=== PATIENT | female | born 1955 | race Caucasian/White ===

== ENCOUNTER 2024-07-22 21:05 | Inpatient (IN) | payer OTHER, SELFPAY ==
[~2024-07-22 21:05] MED LIST: Iopamidol-370 76% 500 ML MDV (1 ML CHARGE) ONE
[2024-07-22] MEDS ORDERED: HYDROmorphone 0.5 MG/0.5 ML SYRINGE ONE ×2 (21:14→22:22)
[2024-07-22] MEDS ORDERED: Aspirin Chewable 81 MG TAB ONE (21:14)
[2024-07-22] MEDS ORDERED: Nitroglycerin 50 MG/250 ML BOT 250 ML ONE (21:14)
[2024-07-22] MEDS ORDERED: EPINEPHrine 1 MG/ML VIAL ONE (21:15)
[2024-07-22] MEDS ORDERED: Ipratropium/Albuterol 3 ML NEB ONE (21:24)
[2024-07-22] MEDS ORDERED: Ondansetron PF 4 MG/2 ML Vial ONE ×2 (21:25→23:02)
[2024-07-22 21:35] LABS: Analyzer IN Cardio ER; Base Excess (BEa) -6.7 mEq/L (-2.0 to +3.0); CO2 Tension 50.2 mmHg (35.0-45.0); Calcium, Ionized (arterial) 1.16 mmol/L (1.12-1.30); Hematocrit-ABG 45 % (36.0-47.0); Hemoglobin (Hb) 15.3 g/dL (12.0-16.0); O2 Tension (PaO2), arterial 136.2 mmHg (> 70.0); Potassium - ABG Lab 3.69 mmol/L (3.70-5.30); pH, Arterial 7.239 (7.35-7.45)
[2024-07-22 21:38] LABS: Puncture Site Right Radial artery
[2024-07-22] MEDS ORDERED: methylPREDNISolone Sod Succ/PF 125 MG/2 ML VIAL ONE (21:44)
[2024-07-22 21:54] LABS: #Basophils 0.15 10x3/uL (0.0-0.2); %Basophils 0.7 % (0.0-1.0); %Eosinophils 0.3 % (0.0-10.0); %Lymphocytes 16.9 % (21.0-51.0); %Monocytes 3.9 % (0.0-10.0); %Neutrophils 76.7 % (42.0-75.0); Hematocrit 43.6 % (36.0-47.0); Hemoglobin 14.4 g/dL (12.0-16.0); Mean Corpuscular Hemoglobin 31.6 pg (27.0-31.0); Mean Corpuscular Volume 95.6 fL (78.0-98.0); Mean Platelet Volume 10.4 fL (7.4-10.4); Platelet Count 274 10x3/uL (130-400); RBC Distribution Width 13.4 % (11.5-14.5); Red Blood Cell (RBC) Count 4.56 mill/uL (4.20-5.40)
[2024-07-22 22:25] LABS: ALT (SGPT) 71 U/L (Less than 34); AST (SGOT) 157 U/L (11-34); Albumin 3.2 g/dL (3.1-4.5); Alkaline Phosphatase 75 U/L (40-110); Anion Gap 20 mmol/L (10-20); BUN (Urea Nitrogen) 12 mg/dL (9.8-20.1); Bilirubin, Total 0.3 mg/dL (0.3-1.2); Calc. Creatinine Clearance 0 mL/min (70-130); Calcium 8.8 mg/dL (7.8-10.44); Carbon Dioxide 19 mmol/L (23-31); Chloride 102 mmol/L (98-107); Estimated GFR 52; Globulin 4.6 g/dL (2.4-3.5); Glucose 255 mg/dL (80-115); Potassium 3.7 mmol/L (3.5-5.1); Protein, Total 7.8 g/dL (5.8-8.1); Sodium 137 mmol/L (136-145)
[2024-07-22 22:27] LABS: Troponin I 0.046 ng/mL (< 0.028)
[2024-07-22] MEDS ORDERED: cefTRIAXone (ROCEPHIN) 2 GM VIAL ONE (23:48)
[2024-07-22] MEDS ORDERED: Enoxaparin 80 MG (0.8 mL) SYRINGE ONE (23:49)
[2024-07-22] MEDS ORDERED: Azithromycin 500 MG VIAL ONE (23:49)
[2024-07-23] MEDS ORDERED: Ipratropium/Albuterol 3 ML NEB NEB PRN (00:17)
[2024-07-23] MEDS ORDERED: Nicotine 14 MG PATCH TD PRN (00:18)
[2024-07-23] MEDS ORDERED: Acetaminophen 325 MG TAB PO PRN (00:20)
[2024-07-23] MEDS ORDERED: Acetaminophen 650 MG Suppository PR PRN (00:20)
[2024-07-23 00:49] LABS: Hemoglobin A1c 6.3 % (4.0-6.0)
[2024-07-23] MEDS: Ketorolac Tromethamine 30 MG (1 mL) VIAL IVP PRN (01:32)
[2024-07-23] MEDS: Doxycycline 100 MG CAP PO SCH (01:34)
[2024-07-23] MEDS: Gabapentin 100 MG CAP PO SCH (01:35)
[2024-07-23 02:14] VITALS: BMI 29.7
[2024-07-23] MEDS: Ipratropium/Albuterol 3 ML NEB NEB SCH (02:45)
[2024-07-23 03:55] LABS: #Basophils 0.05 10x3/uL (0.0-0.2); %Basophils 0.3 % (0.0-1.0); %Eosinophils 0.4 % (0.0-10.0); %Lymphocytes 5.2 % (21.0-51.0); %Neutrophils 91.5 % (42.0-75.0); Mean Corpuscular HGB CONC 33.3 g/dL (32.0-36.0); Mean Corpuscular Hemoglobin 31.7 pg (27.0-31.0); Mean Corpuscular Volume 95.1 fL (78.0-98.0); Mean Platelet Volume 11.6 fL (7.4-10.4); Platelet Count 208 10x3/uL (130-400); RBC Distribution Width 13.7 % (11.5-14.5)
[2024-07-23 04:10] LABS: Magnesium 2.2 mg/dL (1.6-2.6)
[2024-07-23 04:14] LABS: Troponin I 0.182 ng/mL (< 0.028)
[2024-07-23 05:45] LABS: Troponin I 0.185 ng/mL (< 0.028)
[2024-07-23 06:35] LABS: Calcium 8.5 mg/dL (7.8-10.44); Chloride 103 mmol/L (98-107); Potassium 4.2 mmol/L (3.5-5.1); Sodium 135 mmol/L (136-145)
[2024-07-23 06:36] LABS: Globulin 4.3 g/dL (2.4-3.5); Glucose 287 mg/dL (80-115); Protein, Total 7.3 g/dL (5.8-8.1)
[2024-07-23 06:37] LABS: Anion Gap 18 mmol/L (10-20); Carbon Dioxide 18 mmol/L (23-31)
[2024-07-23 06:39] LABS: Alkaline Phosphatase 63 U/L (40-110); Bilirubin, Total 0.5 mg/dL (0.3-1.2)
[2024-07-23 06:40] LABS: BUN (Urea Nitrogen) 15 mg/dL (9.8-20.1); Calc. Creatinine Clearance 62 mL/min (70-130); Estimated GFR 57
[2024-07-23 06:42] LABS: ALT (SGPT) 83 U/L (Less than 34); AST (SGOT) 128 U/L (11-34)
[2024-07-23] MEDS: Morphine 2 MG/ML VIAL SLOW IVP PRN (08:15)
[2024-07-23] MEDS ORDERED: HumaLOG 300 UNITS/3 ML VIAL SC PRN ×2 (09:16)
[2024-07-23] MEDS ORDERED: Albuterol 200 PUFF INH INH PRN (10:03)
[2024-07-23] MEDS: Famotidine 20 MG TAB PO SCH (10:58)
[2024-07-23] MEDS: Enoxaparin 40 MG (0.4 mL) SYRINGE SC SCH (10:58)
[2024-07-23] MEDS: methylPREDNISolone Sod Succ 40 MG VIAL IVP SCH ×2 (10:58→11:42)
[2024-07-23] MEDS: HYDROcodone/Acetaminophen 7.5/325 mg Tablet PO PRN (11:07)
[2024-07-23] MEDS: Insulin Lispro 100 UNIT/ML 10 ML VIAL SC PRN (11:08)
[2024-07-23] MEDS: Famotidine/PF 20 mg/2ml Vial SLOW IVP SCH (11:10)
[2024-07-23] MEDS: Ondansetron PF 4 MG/2 ML Vial IVP PRN (11:16)
[2024-07-23] MEDS: Aspirin 81 mg Enteric Coated Tablet PO SCH (18:53)
[2024-07-23] MEDS: Mometasone 200 MCG/Formoterol 5 MCG 120 PUFF INHALER INH SCH (19:22)
[2024-07-23] MEDS: rOPINIRole HCl 0.25 MG TAB PO SCH (21:24)
[2024-07-23] MEDS: cefTRIAXone\\ROCEPHIN 1 GM in Sodium Chloride 0.9% 100 ML IVPB SCH (23:47)
[2024-07-23] MEDS: Ondansetron ODT 4 MG TAB PO PRN (23:48)
[2024-07-24 04:32] LABS: Hematocrit 37.4 % (36.0-47.0); Hemoglobin 12.4 g/dL (12.0-16.0); Mean Corpuscular HGB CONC 33.2 g/dL (32.0-36.0); Mean Corpuscular Hemoglobin 31.8 pg (27.0-31.0); Mean Corpuscular Volume 95.9 fL (78.0-98.0); Mean Platelet Volume 10.8 fL (7.4-10.4); Platelet Count 187 10x3/uL (130-400); RBC Distribution Width 13.6 % (11.5-14.5)
[2024-07-24 04:47] LABS: ALT (SGPT) 67 U/L (Less than 34); AST (SGOT) 47 U/L (11-34); Alkaline Phosphatase 55 U/L (40-110); Anion Gap 14 mmol/L (10-20); BUN (Urea Nitrogen) 14 mg/dL (9.8-20.1); Bilirubin, Direct 0.2 mg/dL (0.1-0.3); Bilirubin, Total 0.5 mg/dL (0.3-1.2); Calc. Creatinine Clearance 78 mL/min (70-130); Carbon Dioxide 22 mmol/L (23-31); Chloride 99 mmol/L (98-107); Estimated GFR 76; Glucose 229 mg/dL (80-115); Potassium 4.2 mmol/L (3.5-5.1); Protein, Total 7.2 g/dL (5.8-8.1); Sodium 131 mmol/L (136-145)
[2024-07-24 05:08] LABS: Band 3 % (5-11); Lymphocytes 5 % (21-51); Monocytes 3 % (0-10); Neutrophil 89 % (42-75); Nucleated RBC (Manual Ct) 1 % (0); Platelet Adequacy Comment Platelets Normal; Polychromasia SLIGHT = 2-3 cells HPF (0-2)
[2024-07-24] MEDS: Enoxaparin 40 MG (0.4 mL) SYRINGE SC SCH (08:34)
[2024-07-24] MEDS: Aspirin 81 mg Enteric Coated Tablet PO SCH (08:34)
[2024-07-24] MEDS ORDERED: Non-Formulary Item 1 EACH (Fluticasone/Umeclidin/Vilanter [Trelegy Ellipta 200-62.5-25] 1 INH SCH (09:00)
[2024-07-24] MEDS ORDERED: Dextrose 5% in Water 1,000 ML IV PRN (09:07)
[2024-07-24] MEDS ORDERED: Glucagon 1 MG/ML KIT IM PRN (09:07)
[2024-07-24] MEDS ORDERED: Dextrose 50% Abboject 50 ML SYRINGE SLOW IVP PRN (09:07)
[2024-07-24] MEDS ORDERED: Ketorolac Tromethamine 30 MG (1 mL) VIAL IVP SCH (14:30)
[2024-07-24] MEDS ORDERED: Morphine 4 MG/ML VIAL SLOW IVP SCH (14:30)
[2024-07-24] MEDS ORDERED: tiZANidine HCl 4 MG TAB PO SCH (15:00)
[2024-07-24] MEDS: Ketorolac Tromethamine 30 MG (1 mL) VIAL IVP SCH (16:03)
[2024-07-24] MEDS: Morphine 4 MG/ML VIAL SLOW IVP SCH (16:03)
[2024-07-24] MEDS: tiZANidine HCl 4 MG TAB PO SCH ×2 (16:03→20:49)
[2024-07-24] MEDS: Morphine 4 MG/ML VIAL ONE (16:04)
[2024-07-24] MEDS: Ketorolac Tromethamine 30 MG (1 mL) VIAL ONE (16:04)
[2024-07-24] MEDS: traZODone HCl 50 MG TAB PO SCH (20:49)
[2024-07-24] MEDS: Morphine 2 MG/ML VIAL SLOW IVP PRN (20:50)
[2024-07-24] MEDS: Insulin Lispro 100 UNIT/ML 10 ML VIAL SC PRN (21:32)
[2024-07-25] MEDS: traMADol HCl 50 MG TAB PO PRN (02:46)
[2024-07-25] MEDS ORDERED: Nitroglycerin 50 MG/250 ML BOT 0 ML ONE (06:31)
[2024-07-25 06:47] LABS: #Basophils Less than 0.03 10x3/uL (0.0-0.2); #Eosinophils Less than 0.03 10x3/uL (0.0-0.7); %Basophils 0.1 % (0.0-1.0); %Lymphocytes 9.1 % (21.0-51.0); %Neutrophils 85.1 % (42.0-75.0); Hematocrit 34.9 % (36.0-47.0); Hemoglobin 11.5 g/dL (12.0-16.0); Mean Corpuscular Hemoglobin 31.4 pg (27.0-31.0); Mean Corpuscular Volume 95.4 fL (78.0-98.0); Mean Platelet Volume 10.7 fL (7.4-10.4); Platelet Count 184 10x3/uL (130-400); RBC Distribution Width 13.5 % (11.5-14.5); Red Blood Cell (RBC) Count 3.66 mill/uL (4.20-5.40)
[2024-07-25 07:15] LABS: ALT (SGPT) 47 U/L (Less than 34); AST (SGOT) 25 U/L (11-34); Albumin 2.9 g/dL (3.1-4.5); Alkaline Phosphatase 55 U/L (40-110); Anion Gap 14 mmol/L (10-20); BUN (Urea Nitrogen) 19 mg/dL (9.8-20.1); Bilirubin, Direct 0.2 mg/dL (0.1-0.3); Bilirubin, Total 0.5 mg/dL (0.3-1.2); Calc. Creatinine Clearance 80 mL/min (70-130); Carbon Dioxide 24 mmol/L (23-31); Chloride 97 mmol/L (98-107); Estimated GFR 78; Glucose 206 mg/dL (80-115); Sodium 131 mmol/L (136-145)
[2024-07-25] MEDS: Potassium Chloride 20 MEQ TAB PO SCH (09:02)
[2024-07-25] MEDS: Furosemide 40 MG (4 mL) VIAL SLOW IVP SCH (09:03)
[2024-07-25] MEDS: guaiFENesin ER 600 MG TAB PO SCH ×2 (17:49→21:09)
[2024-07-26] MEDS ORDERED: Ketorolac Tromethamine 30 MG (1 mL) VIAL IVP PRN (00:35)
[2024-07-26 00:53] LABS: Actual Bicarbonate (HCO3a) 27.7 mEq/L (22-28); Base Excess (BEa) 3.4 mEq/L (-2.0 to +3.0); CO2 Tension 40.8 mmHg (35.0-45.0); Calcium, Ionized (arterial) 1.23 mmol/L (1.12-1.30); Carboxyhemoglobin (COHb) 1.5 gm% (0.0-3.0); Hematocrit-ABG 38 % (36.0-47.0); Hemoglobin (Hb) 12.8 g/dL (12.0-16.0); Potassium - ABG Lab 4.73 mmol/L (3.70-5.30); pH, Arterial 7.449 (7.35-7.45)
[2024-07-26 00:56] LABS: O2 Tension (PaO2), arterial 57.5 mmHg (> 70.0); Puncture Site Right Radial artery
[2024-07-26] MEDS: Ketorolac Tromethamine 30 MG (1 mL) VIAL IVP SCH (01:15)
[2024-07-26] MEDS: Guaifenesin DM 100-10/5 ML UDCUP PO PRN (01:15)
[2024-07-26 01:46] LABS: #Basophils Less than 0.03 10x3/uL (0.0-0.2); #Eosinophils Less than 0.03 10x3/uL (0.0-0.7); %Basophils 0.1 % (0.0-1.0); %Lymphocytes 9.9 % (21.0-51.0); %Monocytes 4.5 % (0.0-10.0); %Neutrophils 85.1 % (42.0-75.0); Hematocrit 35.5 % (36.0-47.0); Hemoglobin 11.7 g/dL (12.0-16.0); Mean Platelet Volume 10.4 fL (7.4-10.4); Platelet Count 184 10x3/uL (130-400); RBC Distribution Width 13.2 % (11.5-14.5); Red Blood Cell (RBC) Count 3.66 mill/uL (4.20-5.40)
[2024-07-26 02:03] LABS: Lactic Acid 1.89 mmol/L (0.50-2.20)
[2024-07-26 02:04] LABS: ALT (SGPT) 37 U/L (Less than 34); AST (SGOT) 17 U/L (11-34); Albumin 2.9 g/dL (3.1-4.5); Alkaline Phosphatase 51 U/L (40-110); Anion Gap 15 mmol/L (10-20); BUN (Urea Nitrogen) 21 mg/dL (9.8-20.1); Bilirubin, Direct 0.2 mg/dL (0.1-0.3); Bilirubin, Total 0.5 mg/dL (0.3-1.2); Calc. Creatinine Clearance 75 mL/min (70-130); Calcium 8.9 mg/dL (7.8-10.44); Carbon Dioxide 24 mmol/L (23-31); Chloride 97 mmol/L (98-107); Estimated GFR 73; Glucose 226 mg/dL (80-115); Potassium 4.9 mmol/L (3.5-5.1); Protein, Total 6.8 g/dL (5.8-8.1); Sodium 131 mmol/L (136-145)
[2024-07-26] MEDS: Furosemide 40 MG (4 mL) VIAL SLOW IVP SCH (06:10)
[2024-07-26] MEDS ORDERED: [UNRECOGNIZED DRUG - OTHER] FS SCH (07:30)
[2024-07-26] MEDS: Empagliflozin 10 MG TAB PO SCH (08:42)
[2024-07-26] MEDS: Magnesium Citrate 300 ML BOT PO SCH (12:04)
[2024-07-26] MEDS: Morphine 2 MG/ML VIAL SLOW IVP PRN (16:10)
[2024-07-27 05:40] LABS: #Basophils Less than 0.03 10x3/uL (0.0-0.2); #Eosinophils Less than 0.03 10x3/uL (0.0-0.7); %Basophils 0.1 % (0.0-1.0); %Monocytes 5.1 % (0.0-10.0); %Neutrophils 85.3 % (42.0-75.0); Hematocrit 36.8 % (36.0-47.0); Hemoglobin 12.5 g/dL (12.0-16.0); Mean Corpuscular Hemoglobin 31.9 pg (27.0-31.0); Mean Corpuscular Volume 93.9 fL (78.0-98.0); Mean Platelet Volume 10.4 fL (7.4-10.4); Platelet Count 192 10x3/uL (130-400); RBC Distribution Width 13.2 % (11.5-14.5); Red Blood Cell (RBC) Count 3.92 mill/uL (4.20-5.40)
[2024-07-27 06:23] LABS: ALT (SGPT) 29 U/L (Less than 34); AST (SGOT) 16 U/L (11-34); Albumin 2.8 g/dL (3.1-4.5); Alkaline Phosphatase 55 U/L (40-110); Anion Gap 14 mmol/L (10-20); BUN (Urea Nitrogen) 30 mg/dL (9.8-20.1); Bilirubin, Direct 0.2 mg/dL (0.1-0.3); Bilirubin, Total 0.6 mg/dL (0.3-1.2); Calc. Creatinine Clearance 71 mL/min (70-130); Calcium 8.8 mg/dL (7.8-10.44); Carbon Dioxide 29 mmol/L (23-31); Chloride 97 mmol/L (98-107); Estimated GFR 67; Glucose 176 mg/dL (80-115); Potassium 4.4 mmol/L (3.5-5.1); Protein, Total 6.7 g/dL (5.8-8.1); Sodium 136 mmol/L (136-145)
[2024-07-27] MEDS: Insulin Glargine 30 UNITS/0.3 ML VIAL SC SCH (10:02)
[2024-07-27] MEDS: Metolazone 5 MG TAB PO SCH (12:54)
[2024-07-27] MEDS: Nitroglycerin 2% Ointment 1 INCH/1 GM Packet TOP SCH ×2 (12:54→21:15)
[2024-07-27 14:52] LABS: Troponin I 0.013 ng/mL (< 0.028)
[2024-07-28 05:39] LABS: #Basophils Less than 0.03 10x3/uL (0.0-0.2); #Eosinophils Less than 0.03 10x3/uL (0.0-0.7); %Basophils 0.2 % (0.0-1.0); %Lymphocytes 10.8 % (21.0-51.0); %Monocytes 5.1 % (0.0-10.0); %Neutrophils 83.3 % (42.0-75.0); Hematocrit 42.3 % (36.0-47.0); Hemoglobin 14.2 g/dL (12.0-16.0); Mean Corpuscular HGB CONC 33.6 g/dL (32.0-36.0); Mean Corpuscular Hemoglobin 31.4 pg (27.0-31.0); Mean Corpuscular Volume 93.6 fL (78.0-98.0); Mean Platelet Volume 11.1 fL (7.4-10.4); Platelet Count 259 10x3/uL (130-400); RBC Distribution Width 13.2 % (11.5-14.5); Red Blood Cell (RBC) Count 4.52 mill/uL (4.20-5.40)
[2024-07-28 05:52] LABS: Anion Gap 17 mmol/L (10-20); BUN (Urea Nitrogen) 28 mg/dL (9.8-20.1); Calc. Creatinine Clearance 66 mL/min (70-130); Carbon Dioxide 29 mmol/L (23-31); Chloride 90 mmol/L (98-107); Potassium 4.1 mmol/L (3.5-5.1); Sodium 132 mmol/L (136-145)
[2024-07-28 05:53] LABS: ALT (SGPT) 24 U/L (Less than 34); AST (SGOT) 20 U/L (11-34); Albumin 3.1 g/dL (3.1-4.5); Alkaline Phosphatase 63 U/L (40-110); Bilirubin, Direct 0.2 mg/dL (0.1-0.3); Bilirubin, Total 0.6 mg/dL (0.3-1.2); Calcium 9.5 mg/dL (7.8-10.44); Estimated GFR 62; Glucose 235 mg/dL (80-115); Protein, Total 7.5 g/dL (5.8-8.1)
[2024-07-28] MEDS: Metolazone 5 MG TAB PO SCH (09:45)
[2024-07-28] MEDS: ALPRAZolam 0.25 MG TAB PO PRN (12:41)
[2024-07-29] MEDS: Sodium Chloride 0.9% 1,000 ML IV SCH (05:44)
[2024-07-29 06:43] LABS: #Basophils 0.03 10x3/uL (0.0-0.2); #Eosinophils Less than 0.03 10x3/uL (0.0-0.7); %Basophils 0.2 % (0.0-1.0); %Eosinophils 0.1 % (0.0-10.0); %Lymphocytes 9.2 % (21.0-51.0); %Monocytes 5.7 % (0.0-10.0); %Neutrophils 84.3 % (42.0-75.0); Hematocrit 44.6 % (36.0-47.0); Hemoglobin 15.2 g/dL (12.0-16.0); Mean Corpuscular HGB CONC 34.1 g/dL (32.0-36.0); Mean Corpuscular Hemoglobin 31.4 pg (27.0-31.0); Mean Corpuscular Volume 92.1 fL (78.0-98.0); Mean Platelet Volume 10.5 fL (7.4-10.4); Platelet Count 311 10x3/uL (130-400); RBC Distribution Width 13.1 % (11.5-14.5); Red Blood Cell (RBC) Count 4.84 mill/uL (4.20-5.40)
[2024-07-29 06:57] LABS: Anion Gap 22 mmol/L (10-20); BUN (Urea Nitrogen) 33 mg/dL (9.8-20.1); Calc. Creatinine Clearance 66 mL/min (70-130); Calcium 9.8 mg/dL (7.8-10.44); Carbon Dioxide 31 mmol/L (23-31); Chloride 84 mmol/L (98-107); Estimated GFR 64; Glucose 200 mg/dL (80-115); Potassium 3.7 mmol/L (3.5-5.1); Sodium 133 mmol/L (136-145)
[2024-07-29] MEDS ORDERED: Atropine Sulfate 1 mg/10 ml Syringe ONE (08:44)
[2024-07-29] MEDS ORDERED: PHENYLEPHRINE-NS 100 MCG/ML 10 ML SYRINGE ONE (08:44)
[2024-07-29] MEDS ORDERED: Heparin 10,000 UNITS/ 10 ML VIAL ONE (08:44)
[2024-07-29] MEDS ORDERED: EPINEPHrine 1 MG/10 ML Abboject SYRINGE ONE (08:44)
[2024-07-29] MEDS ORDERED: Iopamidol 370 76% 100 ML VIAL ONE (10:14)
[2024-07-29] MEDS ORDERED: fentaNYL 50 mcg/mL 1 mL Vial ONE (10:26)
[2024-07-29] MEDS ORDERED: Midazolam HCl 2 mg/2 ml Vial ONE (10:27)
[2024-07-29] MEDS ORDERED: Nitroglycerin 0.4 MG TAB (25 Tab Bottle) SL PRN (13:24)
[2024-07-29] MEDS ORDERED: Sodium Chloride 0.9% 200 ML IV PRN (13:24)
[2024-07-29 17:24] VITALS: BMI 28.8
[2024-07-30] MEDS: Furosemide 40 MG (4 mL) VIAL SLOW IVP SCH (05:56)
[2024-07-30 06:25] LABS: #Basophils Less than 0.03 10x3/uL (0.0-0.2); #Eosinophils Less than 0.03 10x3/uL (0.0-0.7); %Basophils 0.1 % (0.0-1.0); %Eosinophils 0.1 % (0.0-10.0); %Lymphocytes 9.2 % (21.0-51.0); %Monocytes 4.6 % (0.0-10.0); %Neutrophils 85.4 % (42.0-75.0); Hemoglobin 14.8 g/dL (12.0-16.0); Mean Corpuscular HGB CONC 33.6 g/dL (32.0-36.0); Mean Corpuscular Hemoglobin 31.6 pg (27.0-31.0); Mean Corpuscular Volume 93.8 fL (78.0-98.0); Mean Platelet Volume 10.3 fL (7.4-10.4); Platelet Count 270 10x3/uL (130-400); Red Blood Cell (RBC) Count 4.69 mill/uL (4.20-5.40)
[2024-07-30 06:46] LABS: Anion Gap 18 mmol/L (10-20); BUN (Urea Nitrogen) 34 mg/dL (9.8-20.1); Calc. Creatinine Clearance 68 mL/min (70-130); Calcium 9.6 mg/dL (7.8-10.44); Carbon Dioxide 32 mmol/L (23-31); Chloride 87 mmol/L (98-107); Estimated GFR 66; Glucose 203 mg/dL (80-115); Potassium 3.6 mmol/L (3.5-5.1); Sodium 133 mmol/L (136-145)
[2024-07-30] MEDS ORDERED: Enoxaparin 80 MG (0.8 mL) SYRINGE SC SCH (09:00)
[2024-07-30] MEDS: Furosemide 20 MG (2 mL) VIAL SLOW IVP SCH (15:53)
[2024-07-30] MEDS: Enoxaparin 60 MG (0.6 mL) SYRINGE SC SCH (20:11)
[2024-07-30] MEDS ORDERED: Apixaban 5 MG TAB PO SCH (21:00)
[2024-07-31 21:09] VITALS: TEMP 97.4
[2024-07-31] MEDS: Enoxaparin 80 MG (0.8 mL) SYRINGE SC SCH (21:11)
[2024-07-31 23:52] VITALS: BP 131/56
[2024-08-01] MEDS ORDERED: Spironolactone 25 MG TAB PO SCH (08:00)
[2024-08-01] MEDS ORDERED: predniSONE 20 MG TAB PO SCH (08:00)
[2024-08-01] MEDS ORDERED: Furosemide 20 MG TAB PO SCH (09:00)
== END 2024-08-01 00:45 | disposition short-term general hospital (02) | DRG 280 ==
LOC: ERS 21:05 → CCU 21:20 → 2NO 07-23 15:18
PROVIDERS: ADMIT Student in an Organized Health Care Education/Training Program; ATTEND Internal Medicine
PROC: 5A12012 Performance of Cardiac Output, Single, Manual (ICD-10-PCS; principal; 2024-07-22)
PROC: 4A023N7 Measurement of Cardiac Sampling and Pressure, Left Heart, Percutaneous Approach (ICD-10-PCS; 2024-07-22)
PROC: B2151ZZ Fluoroscopy of Left Heart using Low Osmolar Contrast (ICD-10-PCS; 2024-07-22)
PROC: B2111ZZ Fluoroscopy of Multiple Coronary Arteries using Low Osmolar Contrast (ICD-10-PCS; 2024-07-22)
DX: I21.4 Non-ST elevation (NSTEMI) myocardial infarction (principal); A41.9 Sepsis, unspecified organism; J18.9 Pneumonia, unspecified organism; J96.21 Acute and chronic respiratory failure with hypoxia; I46.9 Cardiac arrest, cause unspecified; I50.43 Acute on chronic combined systolic (congestive) and diastolic (congestive) heart failure; I48.21 Permanent atrial fibrillation; J44.1 Chronic obstructive pulmonary disease with (acute) exacerbation; M96.A3 Multiple fractures of ribs associated with chest compression and cardiopulmonary resuscitation; I25.10 Atherosclerotic heart disease of native coronary artery without angina pectoris; R79.89 Other specified abnormal findings of blood chemistry; F17.210 Nicotine dependence, cigarettes, uncomplicated; R05.9 Cough, unspecified; S92.212A Displaced fracture of cuboid bone of left foot, initial encounter for closed fracture; I11.0 Hypertensive heart disease with heart failure; Z79.01 Long term (current) use of anticoagulants; Z95.0 Presence of cardiac pacemaker; Z95.5 Presence of coronary angioplasty implant and graft; E66.9 Obesity, unspecified; E11.9 Type 2 diabetes mellitus without complications; Z79.899 Other long term (current) drug therapy; Z79.84 Long term (current) use of oral hypoglycemic drugs; Z79.51 Long term (current) use of inhaled steroids; Z88.0 Allergy status to penicillin
CPT/HCPCS: 36415; 36416; 36600; 71045; 71275; 80048; 80053; 80076; 82805; 83036; 83605; 83735; 83880; 84484; 85025; 87428; 93005; 93306; 93458; 94640; 94660; 94664; 94760; 96365; 96367; 96372; 96375; 96376; 99152; 99153; C1769; C1887; C1894; J0171; J0456; J0461; J0696; J1171; J1644; J1650; J1815; J1885; J1940; J2250; J2270; J2272; J2405; J2919; J3010; J3490; J7030; J7620; Q0162; Q9967